=== PATIENT | female | born 1985 | race Two or more races ===

== ENCOUNTER 2018-07-29 22:09 | Emergency (ER) | payer OTHER ==
[~2018-07-29] VITALS: Ht 167.6 cm; Wt 61.2 kg
--- NOTE | 2018-07-29 22:34 | NUR ---
Asked to obtain heart tones by ER Staff. This RN at bedside and explained to pt that I would be placing her on the monitor and would obtaining heart tones for 30 minutes to monitor and fetus and to monitor or UC, pt verbalizes understanding. EFM X 2 placed on patient.
[2018-07-29 22:55] LABS: Basophils # (auto) 0 uL; Basophils % (auto) 0.3 % (0.0-2.0); Eosinophils # (auto) 0 uL; Eosinophils % (auto) 0.4 % (0.0-7.0); Hematocrit 33.7 % (36.0-46.0); Hemoglobin 11.4 g/dL (12.2-16.2); Lymphocytes # (auto) 1.2 uL; Lymphocytes % (auto) 17.5 % (10.0-50.0); Mean Corpuscular Hemoglobin 28.7 pg (28.0-32.0); Mean Corpuscular Hgb Conc. 33.9 g/dL (32.0-36.0); Mean Corpuscular Volume 84.8 fL (80.0-100.0); Monocytes # (auto) 0.5 uL; Monocytes % (auto) 7.3 % (0.0-12.0); Neutrophils # (auto) 5.2 uL; Neutrophils % (auto) 74.5 % (37.0-80.0); Nucleated Red Blood Cells % 0.1 %; Platelet Count (auto) 128 10^3/uL (140-450); Red Blood Cells 3.98 10^6/uL (4.0-5.20); Red Cell Distribution Width 12.9 % (11.8-14.3)
[2018-07-29 23:13] LABS: Potassium 3.8 mmol/L (3.5-5.1)
[2018-07-29 23:16] LABS: Albumin 2.8 g/dL (3.4-5.0); Calcium 8.6 mg/dL (8.5-10.1)
[2018-07-29 23:19] LABS: BUN/Creatinine Ratio 12.9
[2018-07-29 23:22] LABS: Bilirubin, Total 0.2 mg/dL (0.2-1.0); Total Protein 7.1 g/dL (6.4-8.2)
[2018-07-30 01:16] VITALS: BP 89/54
--- NOTE | 2018-07-30 01:29 | NUR ---
Patient removed from [facility].
== END 2018-07-30 03:33 | disposition home or self-care (01) ==
LOC: ER 22:09 → EDBD 22:09 → ER 07-30 03:33
DX: O99.353 Diseases of the nervous system complicating pregnancy, third trimester (principal); G40.802 Other epilepsy, not intractable, without status epilepticus; Z3A.34 34 weeks gestation of pregnancy
CPT/HCPCS: 36415; 76818; 80053; 85025